=== PATIENT | male | born 1950 | race Caucasian/White ===

== ENCOUNTER 2018-08-11 07:27 | Day surgery (SDC) | payer MEDICARE, OTHER ==
[~2018-08-11 07:27] MED LIST: LIDOCAINE 2% (SDV) 5 ML INJ
[2018-08-11] MEDS ORDERED: PROPOFOL 40 ML (08:17)
== END 2018-08-11 12:31 | disposition home or self-care (01) ==
LOC: GIL 07:27
DX: Z86.010 Personal history of colon polyps (principal); K64.1 Second degree hemorrhoids
CPT/HCPCS: 45378